=== PATIENT | male | born 1965 | race African-American/Black ===

== ENCOUNTER 2019-08-08 07:59 | Observation (INO) | payer MEDICAID, OTHER ==
--- NOTE | 2019-08-08 08:18 | ED ---
HPI Chest Pain - HPI Summary HPI Summary: This patient is a 54 year old M presenting to [facility] accompanied by correctional officers with a chief complaint of increased CP worsening since 2 weeks ago. The CP started 2 years ago. He states he can feel his heart beat strongly in the mornings. He last had CP a few hours ago that did not radiate. Pt is not in the medical wing of the nursing home facility. Pt states he never had stents placed or bypass surgery. The patient rates the pain 0/10 in severity. Symptoms aggravated by nothing. Symptoms alleviated by nothing. Patient reports fatigue, cough. Patient denies any fever, chills, erythema of eyes, sore throat, abdominal pain, N/V, dysuria, hematuria, myalgia, edema, rash, or dizziness. Pt regularly uses an inhaler. - History of Current Complaint Chief Complaint: EDChestPainROMI Time Seen by Provider: 08/08/19 08:07 Hx Obtained From: Patient Onset/Duration: Started Weeks Ago - 2 years ago, Still Present, Worse Since - 2 weeks ago Timing: Intermittent, Lasting Weeks - worse since 2 weeks ago Initial Severity: Mild Current Severity: Mild Pain Intensity: 0 Pain Scale Used: 0-10 Numeric Chest Pain Radiates: No Aggravating Factor(s): Nothing Alleviating Factor(s): Nothing Associated Signs and Symptoms: Positive: Chest Pain, Cough, Other: - positive - fatigue. negative - erythema of eyes, sore throat, dysuria, hematuria, myalgia, rash. Negative: Dizziness, Fever, Chills, Nausea, Abdominal Pain, Vomiting, Edema - Allergy/Home Medications Allergies/Adverse Reactions: Allergies Allergy/AdvReac Type Severity Reaction Status Date / Time lidocaine Allergy Tachycardia Verified 08/08/19 08:11 shellfish derived Allergy Itching Verified 08/08/19 08:12 Home Medications: Home Medications Albuterol HFA INHALER* [Ventolin HFA Inhaler*] 1 puff INH Q6H PRN 08/08/19 [ History Confirmed 08/08/19] Aspirin [Aspirin EC] 81 mg PO QAM 08/08/19 [History Confirmed 08/08/19] Cholecalciferol (Vitamin D3) [Vitamin D3] 1,000 unit PO DAILY 08/08/19 [History Confirmed 08/08/19] Docusate Sodium [Colace] 100 mg PO BID 08/08/19 [History Confirmed 08/08/19] Fluticasone HFA 110 mcg(NF) [Flovent HFA 110 mcg(NF)] 1 puff INH BID 08/08/19 [ History Confirmed 08/08/19] Furosemide [Lasix] 20 mg PO QPM 08/08/19 [History Confirmed 08/08/19] Furosemide [Lasix] 40 mg PO QAM 08/08/19 [History Confirmed 08/08/19] Magnesium Oxide [Magnesium] 400 mg PO DAILY 08/08/19 [History Confirmed 08/08/19 ] Spironolactone [Aldactone 25 MG-] 25 mg PO DAILY 08/08/19 [History Confirmed 05/20] Warfarin Sodium [Coumadin] 2.5 mg PO BEDTIME 08/08/19 [History Confirmed ] PMH/Surg Hx/FS Hx/Imm Hx Previously Healthy: No Sensory History: Denies: Hx Legally Blind, Hx Hearing Problem EENT History: Denies: Hx Deafness, Hx Auditory Problems - Surgical History Surgical History: Yes Infectious Disease History: No Infectious Disease History: Denies: Traveled Outside the [place] in Last 30 Days - Family History Known Family History: Positive: None - Social History Alcohol Use: None Hx Substance Use: No Substance Use Type: Reports: None Hx Tobacco Use: Yes Review of Systems Positive: Fatigue. Negative: Fever, Chills Negative: Erythema Negative: Sore Throat Positive: Chest Pain Positive: Cough Negative: Abdominal Pain, Vomiting, Nausea Negative: dysuria, hematuria Negative: Myalgia, Edema Negative: Rash Neurological: Other - negative - dizziness All Other Systems Reviewed And Are Negative: Yes Physical Exam - Summary Physical Exam Summary: Constitutional: Well-developed, Well-nourished, Alert. (-) Distressed Skin: Warm, Dry. Midline sternotomy scar HENT: Normocephalic; Atraumatic Eyes: Conjunctiva normal Neck: Musculoskeletal ROM normal neck. (-) JVD, (-) Stridor, (-) Tracheal deviation Cardio: Rhythm regular, rate normal, Heart sounds normal; Intact distal pulses; The pedal pulses are 2+ and symmetric. Radial pulses are 2+ and symmetric. (-) Murmur Pulmonary/Chest wall: Effort normal. (-) Respiratory distress, (+) Wheezes, (-) Rales Abd: Soft, (-) tenderness, (-) Distension, (-) Guarding, (-) Rebound Musculoskeletal: (-) Edema Lymph: (-) Cervical adenopathy Neuro: Alert, Oriented x3 Psych: Mood and affect Normal Triage Information Reviewed: Yes Vital Signs On Initial Exam: Initial Vitals Temp Pulse Resp BP Pulse Ox 98.1 F 70 18 125/94 99 08/08/19 08:00 08/08/19 08:00 08/08/19 08:00 08/08/19 08:00 08/08/19 08:00 Vital Signs Reviewed: Yes Diagnostics - Vital Signs Vital Signs Temp Pulse Resp BP Pulse Ox 08/08/19 08:10 70 32 98 08/08/19 08:00 98.1 F 70 18 125/94 99 - Laboratory Result Diagrams: 08/08/19 08:31 08/10/19 06:17 Lab Statement: Any lab studies that have been ordered have been reviewed, and results considered in the medical decision making process. - Radiology CXR Radiology Interpretation Completed By: Radiologist Summary of Radiographic Findings: IMPRESSION: Cardiomegaly. No active cardiopulmonary disease is noted. These findings were reviewed by Dr. Myers. - EKG 0807 Cardiac Rate: NL - 70 BPM Summary of EKG Findings: EKG at 0807 shows 70 BPM, atrial-ventricular dual- paced rhythm, no STEMI 1140 Cardiac Rate: NL - 74 BPM Summary of EKG Findings: EKG at 1140 shows 74 BPM, paced rhythm, no STEMI. Chest Pain Course/Dx - Course Course Of Treatment: This patient is a 54 year old M presenting to [facility] accompanied by correctional officers with a chief complaint of increased CP worsening since 2 weeks ago. The CP started 2 years ago. He states he can feel his heart beat strongly in the mornings. He last had CP a few hours ago that did not radiate. Pt is not in the medical wing of the nursing home facility. Pt states he never had stents placed or bypass surgery. The patient rates the pain 0/10 in severity. Symptoms aggravated by nothing. Symptoms alleviated by nothing. Patient reports fatigue, cough. Patient denies any fever, chills, erythema of eyes, sore throat, abdominal pain, N/V, dysuria, hematuria, myalgia , edema, rash, or dizziness. Pt regularly uses an inhaler. Physical exam shows midline sternotomy scar and wheezes. Lab results show RBC 4.13, Hgb 12.8, Hct 39, MCV 95, Plt Count 131, absolute lymphs 0.8. EKG at 0807 shows 70 BPM, atrial-ventricular dual-paced rhythm, no STEMI. EKG at 1140 shows 74 BPM, paced rhythm, no STEMI. CXR IMPRESSION: Cardiomegaly. No active cardiopulmonary disease is noted. During ED course, pt was given Albuterol. At 0940, Dr. Coronado agrees to admit pt. Dx are cardiomyopathy and chest pain unspecified. - Diagnoses Provider Diagnoses: Cardiomyopathy, Chest pain, unspecified - Provider Notifications Discussed Care Of Patient With: Kirti Coronado Time Discussed With Above Provider: 09:40 Instructed by Provider To: Other - Dr. Coronado agrees to admit pt. Discharge ED - Sign-Out/Discharge Documenting (check all that apply): Patient Departure - admit - Discharge Plan Condition: Fair Disposition: ADMITTED TO [facility] - Billing Disposition and Condition Condition: FAIR Disposition: Admitted to [facility] - Attestation Statements Document Initiated by Scribe: Yes Documenting Scribe: Connor Spaulding Provider For Whom Julio Cesare is Documenting (Include Credential): Dr. Arben Myers MD Scribe Attestation: Connor Kim scribed for Dr. Arben Myers MD on 08/16/19 at 2204. Scribe Documentation Reviewed: Yes Provider Attestation: The documentation as recorded by the Connor farias accurately reflects the service I personally performed and the decisions made by me, Dr. Arben Myers MD Status of Scribe Document: Viewed
[2019-08-08] MEDS ORDERED: Albuterol/Ipratropium NEB.SOL* Albuterol 2.5 MG/Ipratropium 0.5 MG 3 ML INH ONE (08:24)
[2019-08-08 08:48] LABS: ABS Basophils 0.1 10^3/ul (0-0.2); ABS Eosinophils 0.2 10^3/ul (0-0.6); ABS Lymphocytes 0.8 10^3/ul (1.0-4.8); ABS Monocytes 0.3 10^3/ul (0-0.8); ABS Neutrophils 3.1 10^3/ul (1.5-7.7); Eosinophil % 5.2 %; Hematocrit 39 % (42-52); Hemoglobin 12.8 g/dL (14.0-18.0); Lymphocyte % 17.7 %; Mean Corpuscular HGB Conc 33 g/dL (31-36); Mean Corpuscular Hemoglobin 31 pg (27-31); Mean Corpuscular Volume 95 fL (80-94); Mean Platelet Volume 9.3 fL (7.4-10.4); Platelet Count 131 10^3/uL (150-450); Red Blood Count 4.13 10^6 /uL (4.18-5.48); Red Cell Distribution Width 14 % (10-15); White Blood Count 4.5 10^3/uL (3.5-10.8)
[2019-08-08 08:54] LABS: Albumin/Globulin Ratio 1.6 (1-3); BUN/Creatinine Ratio 15.3 (8-20); Calcium 8.9 mg/dL (8.6-10.3); EGFR African American 136.6 (>60); EGFR Non-African American 112.9 (>60); Globulin 2.5 g/dL (2-4); Potassium 4.2 mmol/L (3.5-5.0); Total Bilirubin 0.7 mg/dL (0.2-1.0); Total Protein 6.5 g/dL (6.4-8.9)
[2019-08-08 08:56] LABS: Troponin I 0.01 ng/mL (<0.04)
[2019-08-08 10:15] LABS: HDL Cholesterol 38.9 mg/dL
[2019-08-08] MEDS ORDERED: Albuterol HFA INHALER* 8 gm MDI INH PRN (12:06)
[2019-08-08] MEDS ORDERED: Ondansetron INJ* 2 MG/ML VIAL IV PRN (12:10)
[2019-08-08] MEDS ORDERED: Regadenoson* 0.4 MG/5 ML SYRINGE ONE (12:41)
--- NOTE | 2019-08-08 13:35 | HP ---
HISTORY AND PHYSICAL: ADDENDUM: The case was reviewed and discussed with Julia Martinez, nurse practitioner. Mr. 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 due to recurrent episodes of chest pain. The patient has had recurrent episodes of chest pain since July and it happens at rest or with exertion. He had a mitral valve replacement and has a pacemaker, but no further cardiac history is available at this time. Serial troponin so far has been negative. His EKG has shown AV paced rhythm with no acute ischemic changes. The patient will be admitted to telemetry floor and we are going to rule out acute coronary syndrome and the plan is for him to have a pharmacological stress test in the morning. I am in agreement with the management of this patient. [id number]/CPS #: [id number] MTDD
--- NOTE | 2019-08-08 14:50 | HP ---
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 Lemus * (DICTATED BY JULIA MARTINEZ NP) The patient does not remember the name of his primary care physician though has Dr. Adam Burton and Dr. Galan for Cardiology. HISTORY OF PRESENT ILLNESS: This is a 54-year-old male with past medical history significant for cardiomegaly and AFib with cardioversion and an EF of 15 -20%, who presented to the emergency room today for chest pain and palpitations. The patient stated that the increase in chest pain started about 07/14/19 after being relocated to a new [facility] facility [facility] on . Pain occurs about every day, can happen at rest or with activity. Does not appear to have in any particular time of the day, though happens more often when he is feeling stressed. It gets better with positioning and stress management. The patient denies using any nitroglycerin. What precipitated the patient coming to emergency room is that he placed for sick call several days ago and was seen today by the [facility], who then sent him here for evaluation. 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 No new ST elevations noted. At the beginning of the evaluation, the patient had no chest pain. During the course of the interview, the patient reported palpitations which correlated with the inflammatory monitoring and developed left-sided chest pain radiating up into his shoulder. Second EKG obtained showing no changes. He denies any shortness of breath currently. No fevers, chills, abdominal pain, changes in bowel or bladder habits. He denies any signs of bleeding. States he spends most of his time in bed, unable to get out of bed to use his toilet in his cell due to fatigue and chest pain during the night. Hospitalists were asked to evaluate the patient for admission. PAST MEDICAL HISTORY: Significant for: 1. AFib with cardioversion 2. Cardiomegaly with EF of 15-20% 3. Rheumatic fever. 4. Pneumonia. 5. Pleuritis. 6. GI bleed. 7. Asthma as a child. 8. Lead poisoning. PAST SURGICAL HISTORY: Includes: 1. Right inguinal hernia repair. 2. Mitral valve replacement. MEDICATIONS: Home medications include: 1. Fluticasone 1 puff inhalation b.i.d. 2. Albuterol 1 puff inhalation q.6 hours p.r.n. 3. Spironolactone 25 mg p.o. daily. 4. Docusate 100 mg p.o. b.i.d. 5. Aspirin 81 mg q.a.m. 6. Sotalol 160 mg p.o. b.i.d. 7. Metoprolol tartrate 25 mg p.o. b.i.d. 8. Potassium chloride 8 mEq p.o. daily. 9. Cholecalciferol 1000 units p.o. daily. 10. Furosemide 20 mg p.o. q.p.m. 11. Furosemide 40 mg p.o. q.a.m. 12. Warfarin sodium 2.5 mg p.o. at bedtime. 13. Magnesium oxide 400 mg p.o. daily. FAMILY HISTORY: No significant family history that he is aware of. SOCIAL HISTORY: He quit smoking in October of 2017, had been about a pack a day. Denied EtOH use. Has a history of using cocaine for 20 years. Has been clean since 2012. 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 He is not currently . REVIEW OF SYSTEMS: An 11-point system review was performed, was positive for chest pain. Negative for any cough, anorexia, visual changes, dysphagia, or bleeding. PHYSICAL EXAMINATION CONSTITUTIONAL: This is a well-developed gentleman seen sitting up in bed in no acute distress. VITAL SIGNS: 125/94, 98.1 Fahrenheit, pulse 70, respiratory rate 18, 99% oxygen on room air. HEENT: Eyes: Conjunctivae pink and moist. PERRLA. EOM intact. ENT: Oropharynx clear. Mucous membranes moist. LYMPHATICS: No cervical lymphadenopathy noted. RESPIRATORY: No accessory muscle use noted. Expiratory wheezing throughout all lung love. CARDIAC: No murmurs, gallops, or rubs appreciated. S1, S2. Heart rate irregular. ABDOMEN: Soft, nontender with positive bowel sounds x4. MUSCULOSKELETAL: No clubbing or cyanosis noted. Full range of motion of all extremities. SKIN: No rashes or lesions noted. Multiple scarring to his chest. NEUROLOGIC: No focal deficits appreciated. Sensation intact to light touch. PSYCH: Alert and oriented x4. No anxiety or depression noted. PERTINENT LABORATORY DATA: Includes BNP of 1282, troponin was 0.01 increased to 0.03. RBCs 4.13, hemoglobin 12.8, hematocrit 39, MCV 95, platelet count 131. DIAGNOSTICS: Chest x-ray found cardiomegaly, but no other acute findings. EKG was 100% dual paced. ASSESSMENT AND PLAN: My impression is that this is a 54-year-old male with a past medical history significant for cardiomyopathy and atrial fibrillation, who presented to the emergency room today with symptoms of unstable angina without ST changes. We will obtain stress test and echo. 1. Chest pain. TAYLOR score of 4. Nuclear stress test performed, deemed high risk patient. Spoke with Dr. Zapata who suggested initiation of lisinopril, change metoprolol from tartrate to succinate and to keep patient on ASA and spironolactone. May have heart healthy, no caffeine diet. Serial troponins peaked at 0.03. Telemetry monitoring. Initiated lisinopril as suggested, as well as moderate intensity statin. 2. Coronary artery disease. Started on moderate intensity statin. Continue aspirin, spironolactone. 3. Atrial fibrillation. Continue warfarin. Hold beta-blockers until after stress test, then may resume metoprolol and sotalol. 4. Congestive heart failure. Continue furosemide. Hold potassium supplements. Potassium is 4.2 at this time. 5. Hypertension. Continue furosemide and spironolactone. 6. DVT prophylaxis. The patient is on warfarin. 9. Code status, which is full code. DISPOSITION: Admit OBV to 4S CONDITION: Fair TIME SPENT: Time spent on this patient was greater than 60 minutes with more than half of this spent [id number]. My plan of care was discussed with my attending and they agree. JULIA MARTINEZ NP ADDENDUM: The case was reviewed and discussed with Julia Martinez, nurse practitioner. Mr. 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 The patient has had recurrent episodes of chest pain since July and it happens at rest or with exertion. He had a mitral valve replacement and has a pacemaker, but no further cardiac history is available at this time. Serial troponin so far has been negative. His EKG has shown AV paced rhythm with no acute ischemic changes. The patient will be admitted to telemetry floor and we are going to rule out acute coronary syndrome and the plan is for him to have a pharmacological stress test in the morning. I am in agreement with the management of this patient. LAWANDA Lemus MD [id number]/CPS #: [id number]/CPS #: [id number] JORGE
[2019-08-08 16:42] LABS: INR 1.96 (0.82-1.09)
--- NOTE | 2019-08-08 17:02 | ECHO ---
*[facility]* [place] [address] Fax #: [phone] Transthoracic Echocardiogram Patient: Sebastián Jones [id number] : 1965 Study Date: 08/08/2019 Age: 54 Gender: M HR: 62 bpm Height: 67 in /170.2 cm BSA: 1.92 m^2 Weight: 176.6 lb /80.3 kg BMI: 27.7 kg/m^2 *Director Of Online Education: * Alyson Barcenas [facility] *Referring Physician: * Julia Martinez *Reading Physician: * Remi Zapata MD Indications: Chest Pain, unspecified. History: PMH: Cardiomyopathy. Labs, prior tests, procedures, and surgery: Permanent pacemaker system implantation. Valve surgery. Mitral valve replacement with a mechanical valve. Aortic valve replacement with a mechanical valve. Conclusions Summary: - Left ventricle: The cavity size is moderately to severely dilated. Systolic function is severely reduced. The estimated ejection fraction is 15-20%. Severe diffuse hypokinesis. - Right ventricle: Pacer wire noted in the right ventricle. Systolic function is moderately reduced. - Ventricular septum: There is abnormal interventricular septal wall motion consistent with an RV pacemaker. - Left atrium: The atrium is severely dilated. - Mitral valve: There is a mechanical prosthesis. There is trace regurgitation. - Aortic valve: There is a mechanical prosthetic valve. The findings are consistent with mild stenosis. There is trace to mild regurgitation. - Pericardium, extracardiac: There is no significant pericardial effusion. - Study data: No prior study is available for comparison. Study data: Transthoracic echocardiogram. Procedure: Transthoracic echocardiography was performed. Image quality was fair. The study was technically limited due to shadowing artifact from prosthetic material. Complete 2D, spectral Doppler, and color flow Doppler. Location: Bedside. Patient status: Inpatient. Patient room number: 445-2. No prior study is available for comparison. Findings Left ventricle: The cavity size is moderately to severely dilated. Systolic function is severely reduced. The estimated ejection fraction is 15-20%. Severe diffuse hypokinesis. Left ventricular diastolic function parameters are indeterminate. Right ventricle: The cavity size is at the upper limits of normal. Pacer wire noted in the right ventricle. Systolic function is moderately reduced. Ventricular septum: Ventricular septal wall motion has a postoperative appearance. There is abnormal interventricular septal wall motion consistent with an RV pacemaker. Left atrium: The atrium is severely dilated. Right atrium: The atrium is mildly to moderately dilated. Pacer wire noted in right atrium. Mitral valve: Poorly visualized. There is a mechanical prosthesis. There is no evidence of stenosis. There is trace regurgitation. Aortic valve: Poorly visualized. There is a mechanical prosthetic valve. The findings are consistent with mild stenosis. There is trace to mild regurgitation. Tricuspid valve: The leaflets are normal thickness. There is no evidence of stenosis. There is trace regurgitation. Pulmonic valve: The leaflets are normal thickness. There is no evidence of stenosis. There is trace regurgitation. Aorta: Aortic root: The aortic root is appears normal. Ascending aorta: The ascending aorta is mildly dilated. Aortic arch: The aortic arch is appears normal. Pericardium: There is no significant pericardial effusion. Pulmonary arteries: The main pulmonary artery is normal-sized. Systolic pressure can not be accurately estimated. Systemic veins: Inferior vena cava: The vessel is normal in size. There is (>= 50%) respiratory change in the IVC dimension. Measurements Left ventricle Value Ref Right atrium continued Value Ref VIVIAN, LAX (H) 6.8 cm 4.2 - 5.8 SI dim, ES, A4C 4.8 cm 3.4 - 5.3 ESD, LAX (H) 6.1 cm 2.5 - 4.0 Estimated RAP 3 mm Hg --------- FS, LAX (L) 10 % 25 - 43 PW, ED, LAX (H) 1.4 cm 0.6 - 1.0 Aortic valve Value Ref FS (L) 10 % 25 - 43 Gabby diam, ED 2.1 cm --------- PW, ED (H) 1.4 cm 0.6 - 1.0 Peak v, S 2.48 m/sec --------- E', lat gabby, TDI (L) 4.3 cm/sec >=10.0 VTI, S 42.9 cm -- ------- E/e', lat gabby, 35 Mean grad, S 15.0 mm Hg ----- ---- TDI Peak grad, S 25.0 mm Hg --------- E', med gabby, TDI (L) 4.3 cm/sec >=7.0 LVOT/AV, VTI ratio 0.4 -- ------- E/e', med gabby, 35 JACKIE, VTI 1.37 cm^2 ----- ---- TDI JACKIE, Vmax 1.28 cm^2 --------- E', avg, TDI 4.3 cm/sec E/e', avg, TDI (H) 35 <=14 Mitral valve Value Re f Peak E 1.51 m/sec --------- LVOT Value Ref Decel time 187 ms --------- Diam, S 2.10 cm PHT 87 ms --------- Area 3.5 cm^2 Mean grad, D 4.0 mm Hg --------- Peak michi, S 0.92 m/sec Peak grad, D 12.0 mm Hg --------- VTI, S 17.0 cm MVA, PHT 2.0 cm^2 --------- Mean grad, S 2 mm Hg SV 57 ml Pulmonic valve Value Ref SV/bsa 30 ml/m^2 Peak v, S 0.85 m/sec --------- Peak grad, S 3.0 mm Hg --------- Ventricular septum Value Ref IVS, ED (H) 1.5 cm 0.6 - 1.0 Aortic root Value Ref Root diam 2.9 cm <4.1 Right ventricle Value Ref VIVIAN, LAX 3.3 cm Ascending aorta Value Ref VIVIAN minor ax, 3.5 cm 1.9 - 3.5 AAo AP diam, S 3.8 cm --------- A4C mid Aortic arch Value Ref Left atrium Value Ref Arch diam 2.4 cm --------- AP dim, ES (H) 4.90 cm 3.00 - 4.00 Decending aorta Value Ref ML dim, A4C 5.1 cm Jacquie peak michi 0.64 m/sec --------- SI dim, A4C 6.0 cm Vol/bsa, ES, 1-p (H) 42 ml/m^2 12 - 37 Inferior vena cava Value Ref A4C Diam 1.4 cm --------- Vol/bsa, ES, A/L (H) 62 ml/m^2 16 - 34 Right atrium Value Ref SI dim, ES 4.8 cm 3.4 - 5.3 ML dim, ES, A4C (H) 4.9 cm 2.6 - 4.4 Legend: (L) and (H) oanh values outside specified reference range. Prepared and electronically signed by Remi Zapata MD 08/08/2019 17:01
[2019-08-08] MEDS: Atorvastatin* 20 MG TAB PO SCH (17:11)
[2019-08-08] MEDS: Furosemide TAB* 20 MG PO SCH (17:11)
[2019-08-08 18:40] LABS: Magnesium 1.9 mg/dL (1.9-2.7)
[2019-08-08] MEDS ORDERED: Morphine INJ* 2 MG/ML 1 ML SYRINGE (TWO MG - NEW SYRINGE VERSION) IV PRN (19:15)
[2019-08-08] MEDS: Warfarin TAB(*) 2.5 MG PO SCH (20:10)
[2019-08-08] MEDS: Metoprolol Succinate XL TAB* 25 MG PO SCH (20:10)
[2019-08-08] MEDS: Docusate CAP* 100 MG PO SCH (20:11)
[2019-08-08] MEDS: Mometasone 220 MCG MDI INH SCH (20:50)
[2019-08-08] MEDS ORDERED: Metoprolol Tartrate TAB* 25 MG PO SCH ×2 (21:00)
[2019-08-08] MEDS ORDERED: Sotalol TAB* 80 MG PO SCH ×2 (21:00)
[2019-08-09] MEDS ORDERED: Magnesium Sulfate 2 GM IV* 2 GM/50 ML BAG IVPB ONE (08:33)
[2019-08-09] MEDS ORDERED: Potassium Chloride* LIQUID 20 MEQ/15 ML UDC PO SCH (09:00)
[2019-08-09] MEDS ORDERED: Sotalol TAB* 80 MG PO SCH (09:00)
[2019-08-09] MEDS: Metoprolol Succinate XL TAB* 25 MG PO SCH (09:20)
[2019-08-09] MEDS: Sotalol TAB* 80 MG PO SCH ×2 (09:21→21:50)
[2019-08-09] MEDS: Cholecalciferol TAB* 1000 UNITS PO SCH (09:22)
[2019-08-09] MEDS: Aspirin EC TAB* 81 MG TAB.EC PO SCH (09:22)
[2019-08-09] MEDS: Magnesium Oxide TAB* 400 MG PO SCH (09:23)
[2019-08-09] MEDS: Lisinopril TAB* 5 MG PO SCH (09:24)
[2019-08-09] MEDS: Docusate CAP* 100 MG PO SCH ×2 (09:24→21:51)
[2019-08-09] MEDS: Spironolactone TAB* 25 MG PO SCH (09:36)
[2019-08-09] MEDS: Furosemide TAB* 40 MG PO SCH (09:36)
--- NOTE | 2019-08-09 13:44 | CONS ---
AMENDED REPORT NOW INCLUDES DESIGNATED COSIGNER AND DATE OF CONSULT CONSULTATION REPORT: DATE OF CONSULT: 08/09/19 ATTENDING PHYSICIAN: Remi Zapata MD * (DICTATED BY DILIP SUAREZ NP) REASON FOR CONSULT: Chest pain, nonsustained VT. CHIEF COMPLAINT: Chest pain and palpitations. HISTORY OF PRESENT ILLNESS: This is a 54-year-old male patient with a notable history of rheumatic heart disease, who underwent his first aortic valve replacement at the age of 13. In addition to paroxysmal AFib on sotalol 160 mg p.o. b.i.d., mechanical mitral and aortic valve replacement with Bi-V ICD in situ, systolic heart failure, nonsustained VT and atrial tachycardia. The patient states that on 04/12/19, he underwent cardioversion at [facility] in [place] due to AFib, apparently was unsuccessful. On , he underwent a second cardioversion and sotalol was increased to 160 mg at that time. He states the symptoms of palpitations and chest pain improved; however, in June, the symptoms started to reoccur and have been increasing in frequency and intensity since that time. He states that yesterday morning at 0300 after getting up, he started to notice squeezing chest pain that was intermittent and lasting less than 15 seconds. However, it was persistent, so he opted to be evaluated at the medical office at [facility] where he is currently incarcerated. According to their medical records , his blood pressure was 128/79, heart rate was 76, respirations were 16, oxygenation was 99%. He was sent to [facility] due to chest pain and ECG changes. While being evaluated in the emergency department, basic blood work was obtained, troponin has been negative x3. He was admitted yesterday for chest pain, rule out ACS. He underwent Lexiscan ST on 08/08/19 per report There was global hypokinesis. There was a large fixed defect involving the anterior wall extending to the apex and inferior wall with ventriculomegaly. Ejection fraction at stress was 17% with global hypokinesis, ECG non diagnostic due to paced rhythm. The patient had an updated echo as well on 08/08/19, per report LVEF 15% to 20% with severe diffuse hypokinesis, severe left atrial dilatation, mechanical mitral valve prosthesis was stable with a trace mitral insufficiency, mechanical aortic valve gradients were stable with mild periprosthetic stenosis. Home medications were resumed. The patient continued to have intermittent squeezing since yesterday morning at 3 o'clock. He reports dizziness which is apparently chronic, but denies any syncope, does report increased sensation of heart racing and irregularity since June. Denies orthopnea, abdominal distention or edema. According to the patient, he will typically manifest fluid retention in his abdomen in relation to his heart failure which he has not noticed. PAST MEDICAL HISTORY: 1. Biventricular ICD in situ. 2. Anxiety. 3. Asthma. 4. Cardiac arrest requiring ICD implantation in 2013 due to V-fib. 5. Systolic heart failure. 6. GERD. 7. Mechanical aortic and mitral valve replacement. 8. Hypertension. 9. Prior myocardial infarction. 10. Rheumatic fever. 11. VF arrest in 2012 requiring ICD. 12. PVCs which did improve per [facility] records with Bi-V pacing. PAST SURGICAL HISTORY: Includes: 1. Cardioversion most recent on 04/19/19. 2. According to [facility] Medical records, the patient had valvular heart disease with porcine aortic valve replacement and mitral annuloplasty in 1977. He underwent repeat aortic valve replacement with a homograft in 1988 and in [address] [facility] [facility] AVR and MVR with a [place] Allison tricuspid valve repair. 3. Biventricular pacemaker. 4. Hernia repair. MEDICATIONS: Per admission med rec. ALLERGIES: LIDOCAINE, shellfish. According to the patient, LIDOCAINE causes arrhythmias, shellfish causes swelling and tongue to itch. Apparently, the patient in the past tolerated contrast dye. FAMILY HISTORY: Noncontributory. SOCIAL HISTORY: The patient is incarcerated at the [facility] facility. Former cocaine and marijuana. Denies alcohol use or tobacco use. REVIEW OF SYSTEMS: All systems have been reviewed and otherwise is negative except as above mentioned in the HPI. PHYSICAL EXAM: Temperature 97.8, pulse 70, respirations 16, oxygenation 98% on room air, blood pressure 128/77. General: The patient is lying in bed with correction officers at bedside. He appears in no apparent distress, is cooperative with examination. Alert and oriented and actually insightful to his cardiac care. HEENT: Head is atraumatic, normocephalic. Oral mucosa is moist. Tongue is midline. Neck: Supple. Trachea midline. No JVD. No carotid bruits. Cardiac: Normal S1, S2 with mechanical click noted. No gallop or rub noted. Regular rate and rhythm. Lungs: Auscultated posteriorly. No evidence of adventitious breath sounds. Respirations nonlabored. /GI: Abdomen is soft, nontender, nondistended. Normoactive bowel sounds x4. Extremities: No pedal edema. No clubbing. No cyanosis. Peripheral vascular: 2+ brachial and dorsalis pedis pulse palpated bilaterally and symmetrically. DIAGNOSTIC STUDIES/LAB DATA: Blood work obtained 08/08/19, white count 4.5, hemoglobin 12.8, hematocrit 39, platelets 131, INR 1.96. Sodium 139, potassium 4.2, chloride 109, carbon dioxide 26, BUN 11, creatinine 0.72, glucose 88, magnesium 1.9. Troponin negative x3. LDL 90. ECG obtained from 08/09/19 reviewed; showed ventricular paced rhythm with possible underlying AFib, rate of 76, uncorrected QT 463 with correction 521. Chest x-ray, 08/08/19; per radiology report cardiomegaly, no active cardiopulmonary disease noted. ASSESSMENT AND PLAN: 1. Atypical complaints of chest pain described as squeezing lasting less than 15 seconds, recurrent in nature, not related to exertion. Isoenzymes are negative x3. Of note, the patient has had nonsustained ventricular tachycardia noted on telemetry, longest episode occurred at 2142 on 08/08/19. The patient was symptomatic, rate was 170 beats per minute, occurred for a 20-beat count. In the past, the patient has had a history of high PVC burden and nonsustained ventricular tachycardia, thus underwent Bi-V ICD implantation with biventricular pacing, PVC burden did improve according Dr. Cage and Dr. Herrera's notes from 2018. Device interrogation has been ordered. The patient has a [employer] device. QTc is slightly prolonged on sotalol 160 mg p.o. b.i.d. We will speak to Dr. Remi Zapata about either reducing dose or considering alternative antiarrhythmic. Recommend keeping potassium greater than 4, magnesium greater than 2, daily ECGs, Lexiscan Stress test from did reveal a large fixed defect involving the anterior wall extending to the apex and inferior wall, prior nuclear imaging was requested from [facility] and [facility]. Currently the patient is asymptomatic. We will follow. 2. History of nonsustained ventricular tachycardia with prior VF arrest in 2013 , requiring ICD implantation with device upgrade to Bi-V ICD in 2018. PVC burden did improve with biventricular pacing. We will interrogate the device to evaluate the PVC burden in addition to thoracic impedance. We will follow. The patient is on sotalol and metoprolol therapy at this time. 3. History of systolic heart failure, LVEF of 15% to 20%, NYHA function class 3 , stage 3. According to [facility] Medical Records, most recent echocardiogram in 2018 per note was 18%. He appears compensated on physical exam. Denies abdominal distention which is typically how it manifests his systolic dysfunction according to the patient. We will continue lisinopril 5 mg a day in combination with Aldactone 25 and Lasix 40 in the morning and 20 at night. He is actually on Lopressor 50 mg p.o. b.i.d. Thus, we will discontinue metoprolol and resume home Lopressor dose. Strict intake, output, daily weights will follow. 4. History of mechanical mitral and aortic valve replacement on Coumadin therapy. INR is subtherapeutic. Recommended INR of 2.5 to 3.5, gradient appears stable on yesterday's echocardiogram. 5. History of atrial fibrillation; underlying rhythm appears to be AF. He is on Coumadin therapy due to mechanical valve. INR goal is 2.5 to 3.5. 6. Disposition. Pending course. The patient is full code. Dr. Remi Zapata has personally seen and examined the patient. We will follow closely and await medical records from [facility] and make further recommendations. [employer] has been contacted and are aware that patient's device needs to be interrogated. DILIP SUAREZ, NET DEVELOPER ARCHITECT [id number]/[facility] #: [id number] JORGE
--- NOTE | 2019-08-09 15:59 | PN ---
Subjective Date of Service: 08/09/19 Interval History: Pt states that he is feeling better. He had CP yesterday, none today. He also c/o palpitations, which have decreased in intensity, duration, frequency today- he states that they have occurred twice today for seconds. He notes that, at that time, his HR was 102, per tele pack. Denies LE edema, stating that when he gets edema, it occurs in the abdominal area, and he has none currently. He has a chronic productive cough. Pt has PMHx AVR x3, last on 2002, as well as MV repair in 1988, MV replacement in 2002. He denies stents, CABG, etc. He follows with Dr. Galan at [facility] in [place] for cardiology. Objective Active Medications: Acetaminophen (Tylenol Tab*) 650 mg PO Q4H PRN Albuterol (Ventolin Hfa Inhaler*) 1 puff INH Q6H PRN Aspirin (Aspirin Ec Tab*) 81 mg PO QAM KATHY Atorvastatin Calcium (Lipitor*) 20 mg PO 1700 KATHY Cholecalciferol (Vitamin D Tab*) 1,000 units PO DAILY KATHY Docusate Sodium (Colace Cap*) 100 mg PO BID KATHY Furosemide (Lasix Tab*) 20 mg PO QPM KATHY Furosemide (Lasix Tab*) 40 mg PO QAM KATHY Lisinopril (Prinivil Tab*) 5 mg PO DAILY KATHY Magnesium Oxide (Magox 400 Tab*) 400 mg PO DAILY KATHY Metoprolol Tartrate (Lopressor Tab*) 50 mg PO Q12HR KATHY Mometasone Furoate (Asmanex 220 Mcg Mdi *) 1 puff INH QPM KATHY Morphine Sulfate (Morphine Inj (Syringe))*) 2 mg IV Q4H PRN Sotalol HCl (Betapace Tab*) 160 mg PO BID KATHY Spironolactone (Aldactone Tab*) 25 mg PO DAILY KATHY Warfarin Sodium (Coumadin Tab(*)) 2.5 mg PO BEDTIME KATHY; Protocol Vital Signs: Temp Pulse Resp BP Pulse Ox 98.2 F 68 18 90/61 99 08/09/19 14:51 08/09/19 14:51 08/09/19 14:51 08/09/19 14:51 08/09/19 14:51 Oxygen Devices in Use Now: None Appearance: Pt is sitting in bed, HOB elevated. He appears comfortable, in no acute distress. Pleasant and cooperative. Eyes: No Scleral Icterus, PERRLA Ears/Nose/Mouth/Throat: NL Teeth, Lips, Gums, Clear Oropharnyx, Mucous Membranes Moist Neck: NL Appearance and Movements; NL JVP, Trachea Midline Respiratory: Symmetrical Chest Expansion and Respiratory Effort, Clear to Auscultation Cardiovascular: NL Sounds; No Murmurs; No JVD, No Edema, - - Loud, mechanical heart sounds. S1, S2 present. Irregular Abdominal: NL Sounds; No Tenderness; No Distention, No Hepatosplenomegaly Extremities: No Edema, No Clubbing, Cyanosis Neurological: Alert and Oriented x 3 Result Diagrams: 08/08/19 08:31 08/08/19 08:31 Assess/Plan/Problems-Billing Assessment: 54 YOM PMHx rheumatic fever, AVR, MVR, HF EF 15-20%, HTN presents with CP, palpitations. - Patient Problems (1) Chest pain Comment: -Pt with intermittent chest pain yesterday -Trops negative x3; EKG dual paced, no ST changes -ST reveals large fixed defect -Records requested for comparison -Cardiology following -Continue asa, statin, BB (2) Palpitations Comment: -Pt with intermittent palpitations, CP -h/o AF s/p cardioversion; on sotalol, metoprolol, coumadin -AICD interrogation ordered; to be performed today (3) Ventricular tachycardia, nonsustained Comment: -Pacer interrogation ordered -Bi-B AICD in place -Continue tele (4) Systolic heart failure Comment: -Repeat echo with EF 15-20% -Continue ACEi, BB, spironolactone, lasix (5) Atrial fibrillation Comment: -Continue home sotalol, metoprolol -Continue coumadin with daily INR (6) Hypertension (7) DVT prophylaxis Comment: -Coumadin -Daily INR, goal range 2.5-3.5 (8) Full code status Status and Disposition: Observation. Discharge when stable.
[2019-08-09] MEDS: Atorvastatin* 20 MG TAB PO SCH (17:04)
[2019-08-09] MEDS: Furosemide TAB* 20 MG PO SCH (17:04)
[2019-08-09] MEDS: Mometasone 220 MCG MDI INH SCH (19:41)
[2019-08-09] MEDS: Acetaminophen TAB* 325 MG PO PRN (20:10)
[2019-08-09] MEDS: Metoprolol Tartrate TAB* 50 mg PO SCH (21:24)
[2019-08-09] MEDS: Warfarin TAB(*) 2.5 MG PO SCH (21:51)
[2019-08-10] MEDS: Acetaminophen TAB* 325 MG PO PRN ×2 (06:05→09:38)
[2019-08-10 07:01] LABS: INR 2.22 (0.82-1.09)
[2019-08-10 07:14] LABS: BUN/Creatinine Ratio 14.3 (8-20); EGFR African American 126.5 (>60); EGFR Non-African American 104.5 (>60); Potassium 4.1 mmol/L (3.5-5.0)
[2019-08-10] MEDS: Furosemide TAB* 40 MG PO SCH (09:40)
[2019-08-10] MEDS: Docusate CAP* 100 MG PO SCH (09:40)
[2019-08-10] MEDS: Metoprolol Tartrate TAB* 50 mg PO SCH (09:40)
[2019-08-10] MEDS: Spironolactone TAB* 25 MG PO SCH (09:40)
[2019-08-10] MEDS: Aspirin EC TAB* 81 MG TAB.EC PO SCH (09:41)
[2019-08-10] MEDS: Cholecalciferol TAB* 1000 UNITS PO SCH (09:41)
[2019-08-10] MEDS: Sotalol TAB* 80 MG PO SCH (09:41)
[2019-08-10] MEDS: Magnesium Oxide TAB* 400 MG PO SCH (09:41)
[2019-08-10] MEDS: Lisinopril TAB* 5 MG PO SCH (09:45)
--- NOTE | 2019-08-10 11:16 | PN ---
<Jodee Phipps - Last Filed: 08/10/19 11:11> Subjective Date of Service: 08/10/19 - atypical chest pain, NSVT Interval History: No events last night, patient continues to c/o atypical chest pain but is currently pain free. Denies dizziness, palpitations or sensation of heart racing. Device was interrogated yesterday. Medications Active Medications: Acetaminophen (Tylenol Tab*) 650 mg PO Q4H PRN PRN Reason: MILD PAIN or TEMP > 100.4 Last Admin: 08/10/19 09:38 Dose: 650 mg Albuterol (Ventolin Hfa Inhaler*) 1 puff INH Q6H PRN PRN Reason: SHORTNESS OF BREATH Aspirin (Aspirin Ec Tab*) 81 mg PO QAM [facility] Last Admin: 08/10/19 09:41 Dose: 81 mg Atorvastatin Calcium (Lipitor*) 20 mg PO 1700 [facility] Last Admin: 08/09/19 17:04 Dose: 20 mg Cholecalciferol (Vitamin D Tab*) 1,000 units PO DAILY [facility] Last Admin: 08/10/19 09:41 Dose: 1,000 units Docusate Sodium (Colace Cap*) 100 mg PO BID [facility] Last Admin: 08/10/19 09:40 Dose: 100 mg Furosemide (Lasix Tab*) 20 mg PO QPM [facility] Last Admin: 08/09/19 17:04 Dose: 20 mg Furosemide (Lasix Tab*) 40 mg PO QAM [facility] Last Admin: 08/10/19 09:40 Dose: 40 mg Magnesium Oxide (Magox 400 Tab*) 400 mg PO DAILY [facility] Last Admin: 08/10/19 09:41 Dose: 400 mg Metoprolol Tartrate (Lopressor Tab*) 50 mg PO Q12HR [facility] Last Admin: 08/10/19 09:40 Dose: 50 mg Mometasone Furoate (Asmanex 220 Mcg Mdi *) 1 puff INH QPM [facility] Last Admin: 08/09/19 19:41 Dose: 1 puff Morphine Sulfate (Morphine Inj (Syringe))*) 2 mg IV Q4H PRN PRN Reason: PAIN - MODERATE Sotalol HCl (Betapace Tab*) 160 mg PO BID [facility] Last Admin: 08/10/19 09:41 Dose: 160 mg Spironolactone (Aldactone Tab*) 25 mg PO DAILY [facility] Last Admin: 08/10/19 09:40 Dose: 25 mg Warfarin Sodium (Coumadin Tab(*)) 4 mg PO 1700 [facility]; Protocol Warfarin Sodium (Coumadin Tab(*)) 2.5 mg PO 1700 [facility]; Protocol Objective Vital Signs: Temp Pulse Resp BP Pulse Ox 97.7 F 71 20 103/71 99 08/10/19 07:40 08/10/19 07:40 08/10/19 07:40 08/10/19 07:40 08/10/19 07:40 Oxygen Devices in Use Now: None Appearance: lying in bed , NAD, A+O x3 Ears/Nose/Mouth/Throat: NL Teeth, Lips, Gums, Clear Oropharnyx, Mucous Membranes Moist Neck: NL Appearance and Movements; NL JVP, Trachea Midline Respiratory: Symmetrical Chest Expansion and Respiratory Effort, Clear to Auscultation Cardiovascular: NL Sounds; No Murmurs; No JVD, No Edema Abdominal: NL Sounds; No Tenderness; No Distention Extremities: No Edema Skin: No Rash or Ulcers Neurological: Alert and Oriented x 3 Lines/Tubes/Other Access: Clean, Dry and Intact Peripheral IV Laboratory Results: 08/08/19 08:31 08/10/19 06:17 INR (Anticoag Therapy) 2.22 (0.82-1.09) H 08/10/19 06:17 Total Bilirubin 0.70 mg/dL (0.2-1.0) 08/08/19 08:31 AST 15 U/L (13-39) 08/08/19 08:31 ALT 10 U/L (7-52) 08/08/19 08:31 Alkaline Phosphatase 57 U/L (34-104) 08/08/19 08:31 B-Natriuretic Peptide 1282 pg/mL (<=100) H 08/08/19 08:31 Total Protein 6.5 g/dL (6.4-8.9) 08/08/19 08:31 Albumin 4.0 g/dL (3.2-5.2) 08/08/19 08:31 Globulin 2.5 g/dL (2-4) 08/08/19 08:31 Albumin/Globulin Ratio 1.6 (1-3) 08/08/19 08:31 Triglycerides 52 mg/dL 08/08/19 08:31 Cholesterol 139 mg/dL 08/08/19 08:31 LDL Cholesterol 90 mg/dL 08/08/19 08:31 HDL Cholesterol 38.9 mg/dL 08/08/19 08:31 08/08/19 08/08/19 08/08/19 08:31 11:09 16:16 Troponin I 0.01 0.03 0.01 Laboratory Results - last 24 hr 08/10/19 08/10/19 06:17 06:17 INR (Anticoag Therapy) 2.22 H Sodium 138 Potassium 4.1 Chloride 106 Carbon Dioxide 28 Anion Gap 4 BUN 11 Creatinine 0.77 Est GFR ( Amer) 126.5 Est GFR (Non-Af Amer) 104.5 BUN/Creatinine Ratio 14.3 Glucose 84 Calcium 9.0 Diagnostic Imaging: *[facility]* [place] [address] Fax #: [phone] Transthoracic Echocardiogram Patient: Sebastián Padilla [id number] : 1965 Study Date: 08/08/2019 Age: 54 Gender: M HR: 62 bpm Height: 67 in /170.2 cm BSA: 1.92 m^2 Weight: 176.6 lb /80.3 kg BMI: 27.7 kg/m^2 *Diamond Grader: * Alyson Barcenas [facility] *Referring Physician: * Jluia Martinez *Reading Physician: * Remi Zapata MD Indications: Chest Pain, unspecified. History: PMH: Cardiomyopathy. Labs, prior tests, procedures, and surgery: Permanent pacemaker system implantation. Valve surgery. Mitral valve replacement with a mechanical valve. Aortic valve replacement with a mechanical valve. Conclusions Summary: - Left ventricle: The cavity size is moderately to severely dilated. Systolic function is severely reduced. The estimated ejection fraction is 15-20%. Severe diffuse hypokinesis. - Right ventricle: Pacer wire noted in the right ventricle. Systolic function is moderately reduced. - Ventricular septum: There is abnormal interventricular septal wall motion consistent with an RV pacemaker. - Left atrium: The atrium is severely dilated. - Mitral valve: There is a mechanical prosthesis. There is trace regurgitation. - Aortic valve: There is a mechanical prosthetic valve. The This report is only to be considered final once signed by the Provider(s) as displayed in the "<Electronically Signed by >" field (s). Absence of a signature indicates the report is in a draft status and still needs to be finalized. In the event this document was created by someone other than the signing Provider, the individual initiating the document will be listed in the "Entered by:" or "Dictated by:" love. Patient Name: SEBASTIÁN PADILLA [id number] Medical Record#: [id number] Ordering Physician: Julia Martinez NP Acct.#: [id number] : 1965 Age: 54 Sex: M Location: [address] [place] [address] - MEDICAL/TELEMETRY Exam Date: 08/08/19 122 ADM Status: ADM Chun Order Information: NM MYOCARDIAL MULTI RESTING; NUCLEAR CARDIAC STRESS TEST Accession Number: [id number]; [id number] CPT: 81884 Edited for charges. Indication: Chest pain. Myocardial perfusion scan was performed utilizing 1 day protocol. Rest myocardial perfusion performed after intravenous injection of 10.5 mCi of technetium 99 and tetrofosmin. Pharmacological stress was applied and 25.5 mCi of technetium 99 and tetrofosmin was injected for the stress portion of the study. There is a large fixed defect involving the anterior wall extending to the apex and inferior wall. Ventriculomegaly is noted. No evidence of reversible change is noted. T.i.d. is 1.18. Ejection fraction at stress is 70%. Evaluation of wall motion demonstrates global hypokinesis. IMPRESSION: Large fixed defect involving the anterior wall extending to the apex and inferior wall with ventriculomegaly. No definite reversible change is noted. Decreased ejection fraction of 17% with global hypokinesis. ASSESSMENT: High risk Based on imaging criteria from ACC/AHA 2002 Guideline Update for the Management of Patients With Chronic Stable Angina Table 23. Noninvasive Risk Stratification. Dictated By: Alicia Farmer MD Dictated Date/Time: 08/08/19 1524 Transcribed Date/Time: 08/08/19 1524 Copy to: CC: Imaging - [facility] Imaging - [place] [facility] [address] This report is only to be considered final once signed by the Provider(s) as displayed in the "<Electronically Signed by >" field (s). Absence of a signature indicates the report is in a draft status and still needs to be finalized. In the event this document was created by someone other than the signing Provider, the individual initiating the document will be listed in the "Entered by:" or "Dictated by:" love. 1 of 2 EKG Data: EKG; LEAF COVERER rate 70, QTc 5111 Telemetry reviewed; LEAF COVERER rate 80-90, 9 beat count of NSVT this morning. Assessment/Plan #1 h/o Vfib arrest with known NSVT with BiC ICD in situ. Per device check 2018; Mode DDDR., VT monitor only 170 BPM, VF 200 BPM ATP/shock zone. Last episode of VT per check 06/19/2019. at 0141 177BPM., no therapy. He's LEAF COVERER 88% per device tech. In the past Bi V pacing was limited due to PVC burden per notes from [facility] in 2018. He is on Sotalol 160mg PO BID. QTc is stable. keep K+>4 , mag >2. spoke with Dr. Adamson at [facility] who spoke with Dr. Cage EP who agrees with lowering VT monitoring zone Dr. Cage would like to re quantify VT burden after zone is reduced and if it is increasing on Sotalol he would then consider starting Amiodarone. He states he will arrange close follow up in 4-6 weeks with the patient. For now continue Sotalol #2 Atypical c/o chest pain, troponin negative X3. Patient has a known fixed moderate to severe anterior, inferior wall defect based on 2012 MPI report from [facility]. He is on ASA therapy. no further eval at this time. #3 h/o NICM with severe LV dysfunction; compensated on exam. Continue Aldactone therapy. Due to hypotension he is not on ACEI/ARB or Entresto. On Lopressor. BiVICD in situ. LEAF COVERER is inhibited by southern ute high rate. in the past was considered for AVN ablation #4 Mechanical AV, MV; On coumadin therapy INR goal 2.5-3.5. gradients stable on echo #5 h/o PAF; on coumadin due to above #4 and Sotalol therapy. #6 Disposition pending course; will sign off d/w Dr. Ramos who agrees with plan . Ana with [employer] was contacted and was informed that VT monitoring zone needs to be reduced. Attending: Fabrizio Ramos <Fabrizio Ramos - Last Filed: 08/10/19 12:58> Subjective Interval History: 08.10.2019 12:55 pt seen and examined today. Pt's clinical condition d/w LAUREN Phipps today. Records reviewed. EP at [facility] contacted and discussed with LAUREN Phipps. severe CMP, Biv ICD, v tach . for now continue medical rx and reprogram to lower threshold setting for v tach. D/w pt and answered all his concerns and questions . Agree with plan of care. Medications Active Medications: Acetaminophen (Tylenol Tab*) 650 mg PO Q4H PRN PRN Reason: MILD PAIN or TEMP > 100.4 Last Admin: 08/10/19 09:38 Dose: 650 mg Albuterol (Ventolin Hfa Inhaler*) 1 puff INH Q6H PRN PRN Reason: SHORTNESS OF BREATH Aspirin (Aspirin Ec Tab*) 81 mg PO QAM [facility] Last Admin: 08/10/19 09:41 Dose: 81 mg Atorvastatin Calcium (Lipitor*) 20 mg PO 1700 [facility] Last Admin: 08/09/19 17:04 Dose: 20 mg Cholecalciferol (Vitamin D Tab*) 1,000 units PO DAILY [facility] Last Admin: 08/10/19 09:41 Dose: 1,000 units Docusate Sodium (Colace Cap*) 100 mg PO BID [facility] Last Admin: 08/10/19 09:40 Dose: 100 mg Furosemide (Lasix Tab*) 20 mg PO QPM [facility] Last Admin: 08/09/19 17:04 Dose: 20 mg Furosemide (Lasix Tab*) 40 mg PO QAM [facility] Last Admin: 08/10/19 09:40 Dose: 40 mg Magnesium Oxide (Magox 400 Tab*) 400 mg PO DAILY [facility] Last Admin: 08/10/19 09:41 Dose: 400 mg Metoprolol Tartrate (Lopressor Tab*) 50 mg PO Q12HR [facility] Last Admin: 08/10/19 09:40 Dose: 50 mg Mometasone Furoate (Asmanex 220 Mcg Mdi *) 1 puff INH QPM [facility] Last Admin: 08/09/19 19:41 Dose: 1 puff Morphine Sulfate (Morphine Inj (Syringe))*) 2 mg IV Q4H PRN PRN Reason: PAIN - MODERATE Sotalol HCl (Betapace Tab*) 160 mg PO BID [facility] Last Admin: 08/10/19 09:41 Dose: 160 mg Spironolactone (Aldactone Tab*) 25 mg PO DAILY [facility] Last Admin: 08/10/19 09:40 Dose: 25 mg Warfarin Sodium (Coumadin Tab(*)) 4 mg PO 1700 [facility]; Protocol Warfarin Sodium (Coumadin Tab(*)) 2.5 mg PO 1700 [facility]; Protocol Objective Vital Signs: Temp Pulse Resp BP Pulse Ox 97.2 F 67 20 110/76 96 08/10/19 11:17 08/10/19 11:17 08/10/19 11:17 08/10/19 11:17 08/10/19 11:17 Laboratory Results: 08/08/19 08:31 08/10/19 06:17 INR (Anticoag Therapy) 2.22 (0.82-1.09) H 08/10/19 06:17 Total Bilirubin 0.70 mg/dL (0.2-1.0) 08/08/19 08:31 AST 15 U/L (13-39) 08/08/19 08:31 ALT 10 U/L (7-52) 08/08/19 08:31 Alkaline Phosphatase 57 U/L (34-104) 08/08/19 08:31 B-Natriuretic Peptide 1282 pg/mL (<=100) H 08/08/19 08:31 Total Protein 6.5 g/dL (6.4-8.9) 08/08/19 08:31 Albumin 4.0 g/dL (3.2-5.2) 08/08/19 08:31 Globulin 2.5 g/dL (2-4) 08/08/19 08:31 Albumin/Globulin Ratio 1.6 (1-3) 08/08/19 08:31 Triglycerides 52 mg/dL 08/08/19 08:31 Cholesterol 139 mg/dL 08/08/19 08:31 LDL Cholesterol 90 mg/dL 08/08/19 08:31 HDL Cholesterol 38.9 mg/dL 08/08/19 08:31 08/08/19 08/08/19 08/08/19 08:31 11:09 16:16 Troponin I 0.01 0.03 0.01
[2019-08-10] MEDS ORDERED: Warfarin TAB(*) 4 MG PO SCH (17:00)
[2019-08-10 17:12] VITALS: BP 105/65
[2019-08-10] MEDS: Atorvastatin* 20 MG TAB PO SCH (17:16)
[2019-08-10] MEDS: Furosemide TAB* 20 MG PO SCH (17:16)
[2019-08-10] MEDS: Mometasone 220 MCG MDI INH SCH (19:15)
--- NOTE | 2019-08-10 22:22 | DS ---
DISCHARGE SUMMARY: DATE OF ADMISSION: 08/08/19 DATE OF DISCHARGE: 08/10/19 PRIMARY CARE PROVIDER: Dr. Adam Burton; [facility]. OTHER PROVIDERS: Dr. Ramos, Dr. Cage. ATTENDING PHYSICIAN: Akilah Nicholas MD * (dictated by VIKTORIA Montes). PRIMARY DIAGNOSES: 1. Chest pain. 2. Palpitations. SECONDARY DIAGNOSES: 1. Systolic heart failure, ejection fraction 15% to 20%. 2. Mechanical aortic valve, mechanical mitral valve. 3. Hypertension. 4. History of cardiac arrest, requiring ICD implantation due to ventricular fibrillation. 5. Prior myocardial infarction. 6. Rheumatic fever. 7. Gastroesophageal reflux disease. 8. Asthma. 9. Anxiety. CONSULTATIONS WHILE IN THE HOSPITAL: Cardiology consultation; atypical chest pain, isoenzymes negative x3. The patient has had nonsustained V-tach noted on tele. The patient was symptomatic, rate was 170, 420 beats. History of high PVC burden and nonsustained VT, thus underwent BiV ICD implantation, BiV pacing. PVC burden improved per Dr. Cage and Dr. Herrera notes from 2018. Device interrogation ordered. We will consider alternative antiarrhythmics. Recommend potassium greater than 4, magnesium greater than 2, daily EKGs. Lexiscan revealed large fixed defect involving anterior wall to apex and inferior wall. Prior nuclear imaging requested. Currently, the patient is asymptomatic. History of nonsustained VT with prior VF arrest in 2013, requiring ICD implantation with device upgrade to BiV ICD in 2018. PVC burden improved. Interrogate device. Continue sotalol and metoprolol. History of systolic heart failure, LV 15% to 20%. NYHA function class 3 stage 3. Most recent echo per [facility] 18%, appears compensated. Continue lisinopril , Aldactone, Lasix. STUDIES WHILE IN THE HOSPITAL: 1. Transthoracic echocardiogram, summary: LV size moderately to severely dilated. Systolic function severely reduced. EF 15% to 20%. Severe diffuse hypokinesis. RV pacer wire noted and RV systolic function moderately reduced. Ventricular septum abnormal. Intraventricular septum wall motion consistent with RV pacemaker. Severely dilated LA. Mechanical prosthesis MV, trace regurg. Mechanical AV, mild stenosis, trace to mild regurg. No significant pericardial effusion. 2. Nuclear medicine stress test, impression: Large fixed defect involving anterior wall extending to apex and inferior wall with ventriculomegaly. No definite reversible changes noted. Decreased EF of 17% with mild hypokinesis. Assessment, high risk. DISCHARGE MEDICATIONS: Home medications: 1. Albuterol HFA inhaler 1 puff inhalation q.6 hours p.r.n. shortness of breath. 2. Aspirin 81 mg p.o. daily. 3. Cholecalciferol 1000 units p.o. daily. 4. Docusate sodium 100 mg p.o. b.i.d. 5. Fluticasone HFA 1 puff inhalation b.i.d. 6. Furosemide 40 mg p.o. a.m., 20 mg p.o. p.m. 7. Magnesium oxide 400 mg p.o. daily. 8. Metoprolol tartrate 50 mg p.o. b.i.d. 9. Sotalol 160 mg p.o. b.i.d. 10. Spironolactone 25 mg p.o. daily. 11. Warfarin 2.5 mg p.o. at bedtime. New home medication: Atorvastatin 20 mg p.o. at bedtime. HISTORY OF PRESENT ILLNESS/HOSPITAL COURSE: Mr. Jones is a 54-year-old male with a past medical history of rheumatic heart disease, requiring 3 AV replacements, 1 MV repair, 1 MV replacement; paroxysmal atrial fibrillation, on sotalol and metoprolol; systolic heart failure; nonsustained ventricular tachycardia with biventricular ICD; who presented to the ER on 08/08/19 with complaints of chest pain and palpitations. For full and complete details, please see the history and physical dictated by Julia Martinez NP; but, in short , the patient presents with these symptoms. He is admitted to telemetry with a TAYLOR score of 4. Nuclear stress testing was performed and the patient was deemed high risk due to a fixed defect noted during stress testing. Cardiology was consulted. Records from his outpatient genetics nurse were requested. Pacemaker interrogation was ordered due to patient's known history of ventricular tachycardia. There was concern that palpitations were due to V- tach. Upon review of the patient's old records, it was found that this fixed defect was also reported on 2011 nuclear scan from [facility] and was therefore old. He was recommended to continue his aspirin and metoprolol with no further intervention. He will also continue atorvastatin. The patient complained of palpitations throughout his stay. Pacemaker interrogation was performed and revealed no events of V-tach in the range of greater than 170 beats per minute. Cardiology team discussed this case with Dr. Ramos, who spoke with Dr. Cage, the patient's EP. Recommendations were made to lower the VT monitoring zone. Once this occurs, Dr. Cage requests followup in 4 to 6 weeks for re- interrogation and to discuss possible medications if the patient continues to have a high VT burden after parameters are reduced. At this time, the patient continues to have occasional palpitations. He has had 1 bout of chest pain today. He notes that this occurred when he was discussing changing his pacemaker settings, which he thought would cause him to be defibrillated at a lower threshold. It was explained to him that this was not the case, that there will be changes in recording, only. He denies headache, dizziness, lightheadedness, vision changes , difficulty swallowing, shortness of breath, diaphoresis, cough, fever, chills , abdominal pain, nausea, vomiting, diarrhea, constipation, myalgias, arthralgias, muscle weakness, swelling in the lower extremities. He states that when he gets edematous, it occurs in the abdominal area. He denies abdominal swelling at this point. Mr. Jones is stable for [facility]. REVIEW OF SYSTEMS: A 14-point review of systems has been performed and all the pertinent positives and negatives are in the HPI, and all the systems are negative. PHYSICAL EXAMINATION: Mr. Jones is a well-developed, well-nourished middle- aged black man, who is sitting up in bed. He appears to be in no acute distress. He is pleasant and cooperative. HEENT: PERRL. EOMI. Nonicteric sclerae. Hearing is grossly intact. Oral mucous membranes are moist. Tongue is midline. Pharynx is clear. Cardiovascular: Mechanical heart sounds. S1, S2 present. No murmurs, rubs, clicks or gallops. There is no JVD. There is no peripheral edema. No abdominal edema. Radial and pedal pulses are palpable. Pulmonary: Symmetrical chest expansion without use of accessory muscles. Lungs are clear to auscultation bilaterally without rhonchi, wheezes or rubs. No additional clubbing or cyanosis. Abdomen: Bowel sounds in all quadrants. Soft and nontender to palpation. Musculoskeletal: Full range of motion without pain or deformities. Neuro: The patient is awake. He is alert and oriented x3. Cranial nerves grossly intact. Upper and lower extremity strength 5/5 bilaterally, equal rn admission strength. Vital Signs: Temperature 97.6 oral, heart rate 69, respiratory rate 18, oxygen saturation 100% on room air, blood pressure 105/65. DISCHARGE PLAN: Mr. Jones will be discharged back to [facility]. CONDITION: Fair. DIET: Heart healthy. ACTIVITY: As tolerated. MEDICATIONS: 1. Continue atorvastatin, new home medication. 2. Continue sotalol and metoprolol. 3. Continue Coumadin, please titrate dose to INR 2.5 to 3.5. Most recent INR 2.22. EDUCATION: 1. Follow up with provider at [facility] in 1 to 3 days. Discuss medication changes, recent hospitalization. 2. Follow up with Dr. Cage at [facility] in 4 to 6 weeks for device interrogation and further management of palpitation/ventricular tachycardia. 3. Please return to the ER or nearest hospital if you experience any worsening of symptoms, chest pain or discomfort, shortness of breath, dizziness, lightheadedness, loss of consciousness, high fevers, chills, night sweats or any other worrisome signs or symptoms. This a summarized report of a complex medical history and hospital stay. For further details, please see the entire medical record. TIME SPENT: Approximately 35 minutes were spent on discharge, greater than half that time was spent [id number] with the patient, discussing discharge plans and instructions. VIKTORIA DEVLIN [id number]/CPS #: [id number] MTDD
[2019-08-11] MEDS ORDERED: Warfarin TAB(*) 2.5 MG PO SCH (17:00)
== END 2019-08-10 19:00 ==
LOC: ED 07:59 → MEDTELE 12:10 → EEVIPCON 12:10
PROVIDERS: ADMIT Internal Medicine; ATTEND Internal Medicine
DX: R07.89 Other chest pain (principal); I50.20 Unspecified systolic (congestive) heart failure; I47.2 Ventricular tachycardia; R00.2 Palpitations; Z95.2 Presence of prosthetic heart valve; I25.2 Old myocardial infarction; Z95.810 Presence of automatic (implantable) cardiac defibrillator; F41.9 Anxiety disorder, unspecified; J45.909 Unspecified asthma, uncomplicated; I00 Rheumatic fever without heart involvement; Z79.82 Long term (current) use of aspirin; Z79.01 Long term (current) use of anticoagulants
CPT/HCPCS: 36415; 71045; 78452; 80048; 80053; 80061; 83605; 83735; 83880; 84484; 85025; 85610; 93005; 93017; 93306; 94640; 96365; 99284; A9270-GY; A9502; G0378; J2785; J3475